=== PATIENT | female | born 1970 | race Caucasian/White ===

== ENCOUNTER 2019-10-27 07:34 | Day surgery (SDC) | payer OTHER ==
[2019-10-23 11:57] VITALS: BMI 32.6
[2019-10-27] MEDS ORDERED: PROPOFOL 20 ML ONE ×2 (07:51)
[2019-10-27] MEDS ORDERED: LIDOCAINE HCL/PF 2% SDV 5ML VIAL ONE (07:51)
[2019-10-27 08:05] VITALS: TEMP 98.2
[2019-10-27 09:16] VITALS: BP 112/59; PULSE 64
== END 2019-10-27 09:35 | disposition home or self-care (01) ==
LOC: FASU-ENDO 07:34
PROVIDERS: ATTEND Internal Medicine Gastroenterology
PROC: 0DJD8ZZ Inspection of Lower Intestinal Tract, Via Natural or Artificial Opening Endoscopic (ICD-10-PCS; principal; 2019-10-27 08:40)
DX: Z12.11 Encounter for screening for malignant neoplasm of colon (principal)
CPT/HCPCS: 81025